=== PATIENT | male | born 1970 | race African-American/Black ===

== ENCOUNTER 2017-03-16 04:12 | Inpatient (IN) | payer BC ==
[2017-03-16 04:40] LABS: #Basophils 0.1 thou/uL (0.0-0.2); #Eosinphils 0.3 thou/uL (0.0-0.7); #Lymphocytes 4.5 thou/uL (1.20-3.40); #Monocytes 1.1 thou/uL (0.11-0.59); #Neutrophils 6.6 thou/uL (1.40-6.50); %Basophils 1.2 % (0.0-1.0); %Eosinophils 2.2 % (0.0-10.0); %Lymphocytes 35.4 % (21.0-51.0); %Monocytes 8.9 % (0.0-10.0); %Neutrophils 52.3 % (42.0-75.0); Hemoglobin 16.8 g/dL (14.0-18.0); Mean Corpuscular HGB CONC 32.3 g/dL (32.0-36.0); Mean Corpuscular Hemoglobin 29.3 pg (27.0-31.0); Mean Corpuscular Volume 90.8 fl (80.0-94.0); Mean Platelet Volume 8.4 fL (7.4-10.4); Platelet Count 187 thou/uL (130-400); RBC Distribution Width 12.7 % (11.5-14.5); Red Blood Cell (RBC) Count 5.74 mill/uL (4.70-6.10); White Blood Cell (WBC) Count 12.7 thou/uL (4.8-10.8)
[2017-03-16 04:51] LABS: PTT 27.9 SEC (22.9-36.1); Prothrombin Time 13.3 SEC (12.0-14.7)
[2017-03-16] MEDS ORDERED: Nitroglycerin 0.4 MG TAB (25 Tab Bottle) ONE ×2 (04:57→06:24)
[2017-03-16 05:02] LABS: ALT (SGPT) 18 U/L (8-55); AST (SGOT) 20 U/L (5-34); Albumin 3.9 g/dL (3.5-5.0); Alkaline Phosphatase 58 U/L (40-150); Anion Gap 11 mmol/L (10-20); BUN (Urea Nitrogen) 10 mg/dL (8.9-20.6); Bilirubin, Total 0.3 mg/dL (0.2-1.2); CK (CPK) 526 U/L (30-200); Calc. Creatinine Clearance 0 mL/min (70-130); Calcium 9.1 mg/dL (7.8-10.44); Carbon Dioxide 26 mmol/L (22-29); Chloride 106 mmol/L (98-107); Estimated GFR-MDRD 84; Globulin 2.2 g/dL (2.4-3.5); Glucose 171 mg/dL (70-105); Potassium 3.8 mmol/L (3.5-5.1); Protein, Total 6.1 g/dL (6.0-8.3); Sodium 139 mmol/L (136-145)
[2017-03-16 05:05] LABS: CKMB 3.8 ng/mL (0-6.6); Troponin I 0.017 ng/mL (< 0.028)
[2017-03-16] MEDS ORDERED: ISOVUE-370 76%-LOCM 1 ML ONE (06:29)
[2017-03-16] MEDS ORDERED: Mag-Al 1200 mg/1200 mg/30 ML UDCUP PO PRN (06:52)
[2017-03-16] MEDS ORDERED: hydrALAZINE 20 MG/ML VIAL SLOW IVP PRN ×2 (06:52→16:35)
[2017-03-16] MEDS ORDERED: Bisacodyl 5 MG TAB PO PRN (06:52)
[2017-03-16] MEDS ORDERED: Lorazepam 1 MG TAB PO PRN (06:52)
[2017-03-16] MEDS ORDERED: Senokot 8.6 MG TAB PO PRN (06:52)
[2017-03-16] MEDS ORDERED: traMADol HCl 50 MG TAB PO PRN (06:52)
[2017-03-16] MEDS ORDERED: Calcium Carbonate 500 MG ChewTAB PO PRN (06:52)
[2017-03-16] MEDS ORDERED: Nitroglycerin 0.4 MG TAB (25 Tab Bottle) SL PRN (06:52)
[2017-03-16] MEDS ORDERED: Acetaminophen 325 MG TAB PO PRN (06:52)
[2017-03-16] MEDS ORDERED: Benzonatate 100 MG CAP PO PRN (06:52)
[2017-03-16] MEDS ORDERED: Loratadine 10 MG TAB PO PRN (06:52)
[2017-03-16] MEDS ORDERED: Ondansetron HCl/PF 4 MG/2 ML Vial IVP PRN (06:52)
[2017-03-16] MEDS ORDERED: Diabetic Tussin 200 MG/10 ML UDCUP PO PRN (06:52)
[2017-03-16] MEDS ORDERED: cloNIDine 0.1 MG TAB PO PRN (06:52)
[2017-03-16] MEDS ORDERED: Nitroglycerin 2% Ointment 1 INCH/1 GM Packet ONE (06:56)
[2017-03-16 07:57] LABS: Troponin I 0.201 ng/mL (< 0.028)
[2017-03-16 08:06] LABS: Amphetamine Not Detected (NotDetected); Barbiturates Screen Not Detected (NotDetected); Benzodiazepine Screen Not Detected (NotDetected); Cocaine Metabolite Screen Not Detected (NotDetected); Medtox Control Line Valid? VALID (VALID); Medtox Reader # READER 1; Methadone Not Detected (NotDetected); Methamphetamine Not Detected (NotDetected); Opiate Screen Not Detected (NotDetected); Oxycodone Screen Not Detected (NotDetected); Phencyclidine (PCP) Not Detected (NotDetected); THC/Cannabinoid Screen Detected (NotDetected); Tricyclic Screen Not Detected (NotDetected)
--- NOTE | 2017-03-16 08:28 | RAD ---
TWO VIEW CHEST: INDICATIONS: Chest pain. FINDINGS: The lungs are clear. The cardiac silhouette is within normal limits in size. No vascular congestion . Mild osseous degenerative change is present. IMPRESSION: No focal consolidation. POS: [facility]
[2017-03-16] MEDS ORDERED: Enoxaparin Sodium 40 MG/0.4 ML SYRINGE ONE (08:59)
[2017-03-16] MEDS ORDERED: Famotidine 20 MG TAB ONE (09:00)
[2017-03-16] MEDS ORDERED: Acetaminophen 325 MG TAB ONE (09:00)
[2017-03-16] MEDS ORDERED: Enoxaparin Sodium 40 MG/0.4 ML SYRINGE SC SCH (09:00)
[2017-03-16] MEDS ORDERED: Ondansetron HCl/PF 4 MG/2 ML Vial ONE (09:13)
[2017-03-16] MEDS ORDERED: Labetalol HCl 100 MG/20 ML VIAL SLOW IVP PRN (09:34)
[2017-03-16 10:35] LABS: Cardiac Risk 3.8 (Less than 4.5)
[2017-03-16 10:53] LABS: Hemoglobin A1c 5.6 % (4.0-6.0)
--- NOTE | 2017-03-16 11:09 | HP ---
DATE OF ADMISSION: 03/16/2017 PRIMARY CARE PHYSICIAN: None. CHIEF COMPLAINT: Chest pain. HISTORY OF PRESENT ILLNESS: Mr. Acosta is a 46-year-old Afro-Macedonian male without any significan t past medical history, as he has never received any medical care, who presented to the emergency [facility] with acute onset of sudden sharp left-sided chest pain. History is mainly obtained by the patient and supplemented by his . Electronic medical records have been reviewed and the case has been di scussed with admitting ER physician, Dr. Ramirez. According to Mr. Acosta, he has been in his usual health up until last night. He had sudden onset of sharp left-sided chest pain after intercourse. He denies taking any Viagra or Cialis. The pain radiated down his left arm and it was associated with shortness of breath, dizziness, and he vomited shortly afterwards. The pain was 10/10 in intensity and he could not recall any relieving factors. The pain persisted until he presented to the emergency room and was given nitroglycerin by mouth. Upon further evaluation in the emergency room, he was found to be having hypertensive emergency with a blood pressure of 206/128. He received medications for blood pressure stabilization in the form of nitro paste. His EKG initially showed some T-wave inversion and depression in leads I and aVL and s erial EKGs were done, which did not show any dynamic progression. He also received aspirin in the em ergency room. He is now being admitted for further evaluation and care. His initial troponin is neg ative, but the repeat troponin is slightly elevated to 0.201. Other than that, the patient denies any recent illnesses. He has never had his blood pressure checke d and does not know if he has undiagnosed hypertension. He has a strong family history of cardiac di sease as well as stroke running in his family. PAST MEDICAL HISTORY: None that the patient knew of. PAST SURGICAL HISTORY: None. SOCIAL HISTORY: He smokes about one-pack of cigarettes per day. Recreational marijuana use. No alc ohol use. ALLERGIES: No known medication allergies. CURRENT MEDICATIONS: None. FAMILY HISTORY: Significant for stroke and heart attack in his mother and heart attack in his grandf ather. One of his brothers also had a heart attack. REVIEW OF SYSTEMS: The following complete review of systems was negative, unless otherwise mentioned in the HPI or below: Constitutional: Weight loss or gain, ability to conduct usual activities. Sk in: Rash, itching. Eyes: Double vision, pain. ENT/Mouth: Nose bleeding, neck stiffness, pain, te nderness. Cardiovascular: Palpitations, dyspnea on exertion, orthopnea. Respiratory: Shortness of breath, wheezing, cough, hemoptysis, fever, or night sweats. Gastrointestinal: Poor appetite, abdo mateo pain, heartburn, nausea, vomiting, constipation, or diarrhea. Genitourinary: Urgency, frequen cy, dysuria, nocturia. Musculoskeletal: Pain, swelling. Neurologic/Psychiatric: Anxiety, depressi on. Allergy/Immunologic: Skin rash, bleeding tendency. It is negative except for those mentioned i n the history and physical. PHYSICAL EXAMINATION: VITAL SIGNS: Upon presentation include blood pressure 206/128, pulse of 64, respirations 16, tempera ture 98.4, saturating 99% on room air. Most recent blood pressure 188/102. GENERAL EXAMINATION: In no acute distress. Awake, alert, and oriented x3. He is sleepy, but easily woken up. In no acute distress. HEENT EXAMINATION: Mucous membrane is moist and pink. No oropharyngeal exudate or erythema. Head i s normocephalic, atraumatic. Pupils are equal, round, and reactive to light and accommodation. NECK: Supple without any lymphadenopathy, JVD, or bruits. Bilateral carotid pulses are palpable equ ally. CHEST: Clear to auscultation without any wheezing, rales, or rhonchi. HEART: Rate and rhythm is regular without any murmurs, rubs, or gallops. ABDOMEN: Obese, soft, nontender, nondistended with positive bowel sounds. EXTREMITIES: No cyanosis, clubbing, or edema. NEUROLOGICAL EXAMINATION: Nonfocal. SKIN: Free of any rashes or bruises. Warm and dry to touch. PSYCHIATRIC: Normal affect. LABORATORY EXAMINATION: Most recent EKG, by my review, shows normal sinus rhythm at 65 beats per min sameer. T waves inverted in leads I and aVL and leads III with ST elevation in leads III. His CBC show s WBCs at 12.7 without any left shift. Serum chemistries unremarkable except for blood sugar of 171, creatine kinase 526, initial cardiac enzymes negative. Repeat troponin 0.201. BNP normal. Urine d rug screen is positive only for cannabinoids. IMPRESSION AND PLAN: 1. Chest pain. The patient's symptomatology is worrisome for unstable angina versus acute myocardia l infarction, likely [id number] myocardial infarction. We will continue to trend serial cardia c enzymes. Likelihood of pulmonary embolism is very low. His physical exam is not consistent with t he same. We will, however, rule out aortic dissection by CT scan of his chest and abdomen. He does have bilateral radial pulses and carotid pulses palpable equally. Other causes of his chest pain can be secondary to hypertensive urgency and emergency. He seems to have undiagnosed longstanding hyper tension. We will provide control of his hypertension by using p.r.n. clonidine as well as p.r.n. lab etalol for now. He will be started on scheduled medications. We will obtain a transthoracic echocar diogram as well as consult Cardiology for further recommendations. If his troponins continue to tren d up, he will be started on tgm-gbdeguyms-bogzej heparin mg/kg dosing. 2. Leukocytosis, unclear etiology. We will monitor. 3. Mild rhabdomyolysis, likely due to chest pain. We will monitor and encouraged oral fluid intake. 4. Tobacco abuse. The patient has been counseled. 5. Morbid obesity. We will check a lipid panel as well. 6. Hyperglycemia. Check hemoglobin A1c. 7. Deep vein thrombosis and gastrointestinal prophylaxis. 8. Add p.r.n. medication order. 9. Code status: FULL CODE. DISPOSITION: Mr. Acosta will be admitted for chest pain, possible unstable angina versus non-ST-e levation MO. ESTIMATED LENGTH OF STAY: At least 2 to 3 midnights. He may or may not need cardiac catheterization. We will defer the decision to Cardiology.
[2017-03-16 11:13] LABS: Troponin I 1.311 ng/mL (< 0.028)
[2017-03-16] MEDS ORDERED: Enoxaparin Sodium 100 MG/ML SYRINGE ONE (11:50)
--- NOTE | 2017-03-16 12:15 | CT ---
CT ANGIO CHEST AND ABDOMEN FOR AORTIC DISSECTION WITH CONTRAST: HISTORY: Chest pain and hypertension. Assess for aortic dissection. TECHNIQUE: Multiple axial tomograms obtained through the chest and abdomen, in the arterial phase, following aor togram protocol, with multiplanar reconstruction and 3D post processing. FINDINGS: The thoracic and abdominal aorta are of normal caliber. There is no evidence of dissection. There i s no significant atherosclerotic change seen. The thoracic vessels, including the celiac artery, the superior mesenteric artery, and the renal artery appear unremarkable. Aortic bifurcation is unremar kable. The lungs appear clear of infiltrate. The liver, spleen, pancreas, and kidneys are unremarkable. Bowel loops appear unremarkable. IMPRESSION: Unremarkable aortogram. POS: [facility]
[2017-03-16] MEDS ORDERED: cloNIDine 0.1 MG TAB ONE (14:45)
[2017-03-16] MEDS ORDERED: Labetalol HCl 100 MG/20 ML VIAL ONE (15:50)
[2017-03-16] MEDS: Famotidine 20 MG TAB PO SCH ×2 (16:46→21:34)
[2017-03-16 16:50] LABS: Troponin I 7.538 ng/mL (< 0.028)
[2017-03-16] MEDS: Amlodipine 10 MG TAB PO SCH ×2 (16:50→17:26)
[2017-03-16] MEDS ORDERED: Nitroglycerin 50 MG/250 ML BOT 250 ML ONE (17:27)
[2017-03-16 18:13] VITALS: BMI 40.4
[2017-03-16] MEDS ORDERED: Communication Order-Pharmacy FS SCH (18:45)
[2017-03-16] MEDS ORDERED: Lisinopril/Hydrochlorothiazide 10 mg/12.5 mg Tablet PO SCH (19:00)
[2017-03-16] MEDS ORDERED: Nitroglycerin 50 MG/250 ML BOT 250 ML IVPB SCH (19:00)
[2017-03-16] MEDS ORDERED: niCARdipine 20MG In NaCl 20 MG/200 ML BAG IVPB SCH (19:00)
[2017-03-16] MEDS ORDERED: FLU VACC QS2017-18 36 mo. & older 0.5 ML SYRINGE IM ONE (21:00)
[2017-03-16] MEDS: Atorvastatin Calcium 40 MG TAB PO SCH (21:34)
[2017-03-16] MEDS: Metoprolol Tartrate 25 MG TAB PO SCH (21:34)
--- NOTE | 2017-03-17 00:47 | CON ---
DATE OF CONSULTATION: 03/16/2017 TIME: 45 minutes. HISTORY OF PRESENT ILLNESS: Patient is a 46-year-old gentleman who presented with acute onset of chest discomfort. The patient has no previous cardiac history. The patient states that he developed the acute onset of midsternal chest discomfort. The patient came to the emergency room with severe chest pain. The chest pain radiated down into his left arm. The patient was noted be markedly hypertensive and admitted for further evaluation. The patient was noted to have chest pain. The patient denies having any present chest discomfort. PAST MEDICAL HISTORY: None PAST SURGICAL HISTORY: None. SOCIAL HISTORY: He smokes 1 pack per day. FAMILY HISTORY: Strong family history of heart disease. ALLERGIES: No known drug allergies. PHYSICAL EXAMINATION: GENERAL: Obese gentleman with a blood pressure 185/80. NECK: Showed no jugular vein distention. LUNGS: Clear to auscultation. HEART: Regular rate and rhythm, normal S1, S2. ABDOMEN: Nondistended. EXTREMITIES: Showed trace edema. LABORATORY DATA: Sodium was 139, potassium 3.8, chloride 106, bicarbonate 26, BUN 10, creatinine is 1.14, glucose 171, troponin was 7.5. White blood cell count is 12.7, hemoglobin 16.8, hematocrit of 52.1, platelets were 187. His EKG revealed normal sinus rhythm with poor R-wave progression, suggestive of previous anteroseptal infarct. IMPRESSION: 1. Non-Q-wave myocardial infarction. 2. Hypertensive crisis. 3. Tobacco abuse. This gentleman presents with a non-Q-wave myocardial infarction and hypertensive crisis. The patient does have several cardiac risk factors including hypertension, tobacco abuse, and a family history of coronary artery disease. I discussed the option of undergoing noninvasive evaluation versus cardiac catheterization to define whether he has severe coronary artery disease. The patient strongly prefers an invasive evaluation. PLAN: Proceed with cardiac catheterization. JENNIFER
[2017-03-17 06:13] LABS: #Basophils 0.1 thou/uL (0.0-0.2); #Lymphocytes 2.5 thou/uL (1.20-3.40); #Monocytes 1.8 thou/uL (0.11-0.59); #Neutrophils 11.8 thou/uL (1.40-6.50); %Basophils 0.4 % (0.0-1.0); %Eosinophils 0.3 % (0.0-10.0); %Lymphocytes 15.5 % (21.0-51.0); %Monocytes 11.3 % (0.0-10.0); %Neutrophils 72.6 % (42.0-75.0); Hemoglobin 15.5 g/dL (14.0-18.0); Mean Corpuscular HGB CONC 32.2 g/dL (32.0-36.0); Mean Corpuscular Volume 90.1 fl (80.0-94.0); Mean Platelet Volume 8.4 fL (7.4-10.4); Platelet Count 180 thou/uL (130-400); RBC Distribution Width 12.4 % (11.5-14.5); Red Blood Cell (RBC) Count 5.34 mill/uL (4.70-6.10); White Blood Cell (WBC) Count 16.3 thou/uL (4.8-10.8)
[2017-03-17 06:33] LABS: Anion Gap 13 mmol/L (10-20); BUN (Urea Nitrogen) 6 mg/dL (8.9-20.6); Calc. Creatinine Clearance 160 mL/min (70-130); Carbon Dioxide 24 mmol/L (22-29); Chloride 105 mmol/L (98-107); Estimated GFR-MDRD Greater than 90; Glucose 130 mg/dL (70-105); Sodium 138 mmol/L (136-145)
[2017-03-17] MEDS: Famotidine 20 MG TAB PO SCH ×2 (07:26→21:49)
[2017-03-17] MEDS: Metoprolol Tartrate 25 MG TAB PO SCH ×2 (07:26→21:49)
[2017-03-17] MEDS ORDERED: Amlodipine 10 MG TAB PO SCH (09:00)
[2017-03-17] MEDS ORDERED: Midazolam HCl 2 mg/2 ml Vial ONE (11:08)
[2017-03-17] MEDS ORDERED: TICAGRELOR 90 MG TABLET ONE (11:23)
[2017-03-17] MEDS ORDERED: Heparin 10,000 UNITS/1 ML VIAL ONE (11:23)
[2017-03-17] MEDS ORDERED: Fentanyl 100 MCG/2 ML VIAL ONE (11:43)
[2017-03-17] MEDS ORDERED: hydrALAZINE 20 MG/ML VIAL ONE (11:52)
[2017-03-17] MEDS ORDERED: Nitroglycerin 0.4 MG TAB (25 Tab Bottle) SL PRN (12:06)
--- NOTE | 2017-03-17 15:31 | PDOC.PN ---
- Subjective Encounter Start Date: 03/17/17 Encounter Start Time: 15:29 Subjective: feels better. no more CP.no SOB -: s/p cardiac cath and RCA stenting w SHARIF - Objective MAR Reviewed: Yes Vital Signs & Weight: Vital Signs (12 hours) Temp Pulse Resp BP Pulse Ox 03/17/17 14:00 99.1 F 03/17/17 13:00 98.9 F 03/17/17 12:06 98.9 F 78 10 L 143/79 H 03/17/17 09:35 95 03/17/17 07:40 98.5 F 78 10 L 94 L 03/17/17 07:00 98.5 F 03/17/17 04:00 98.5 F Most Recent Monitor Data Heart Rate from ECG 78 NIBP 141/74 NIBP BP-Mean 106 Respiration from ECG 9 SpO2 94 I&O: 03/16/17 03/17/17 03/18/17 06:59 06:59 06:59 Intake Total 240 Output Total 775 775 Balance -775 -535 Result Diagrams: 03/17/17 05:30 03/17/17 05:30 Additional Labs: Laboratory Tests 03/16/17 03/16/17 03/16/17 04:28 07:29 07:29 Troponin I 0.017 0.201 H Triglycerides 180 H 03/16/17 03/16/17 10:34 16:17 Troponin I 1.311 H* 7.538 H* Triglycerides Phys Exam - Physical Examination Constitutional: NAD HEENT: PERRLA, moist MMs, sclera anicteric, oral pharynx no lesions Neck: no nodes, no JVD, supple, full ROM Respiratory: no wheezing, no rales, no rhonchi, clear to auscultation bilateral Cardiovascular: RRR, no significant murmur, no rub, gallop Gastrointestinal: soft, non-tender, no distention, positive bowel sounds Musculoskeletal: no edema, pulses present Neurological: non-focal, normal sensation, moves all 4 limbs Psychiatric: normal affect, A&O x 3 Dx/Plan (1) NSTEMI (non-ST elevated myocardial infarction) Code(s): I21.4 - NON-ST ELEVATION (NSTEMI) MYOCARDIAL INFARCTION Status: Acute (2) Hypertensive emergency Code(s): I16.1 - HYPERTENSIVE EMERGENCY Status: Acute (3) HLD (hyperlipidemia) Code(s): E78.5 - HYPERLIPIDEMIA, UNSPECIFIED Status: Acute (4) Obesity (BMI 35.0-39.9 without comorbidity) Code(s): E66.9 - OBESITY, UNSPECIFIED Status: Acute - Plan plan discussed w/ family, DVT proph w/SCDs S/P cardiac stenting.formla report pending.cardiology following. -: HD sable. BP better.on Nicardipine drip. -: cont cardio-prudent meds. statin,BB,MOHAN-I.ECHo w NL EF.Plavix -: Diet and weight loss advised w smoking cessation -: family updated * . Review of Systems - Review of Systems Constitutional: negative: fever, chills, sweats, weakness, malaise, other Respiratory: negative: Cough, Dry, Shortness of Breath, Hemoptysis, SOB with Excertion, Pleuritic Pain, Sputum, Wheezing Cardiovascular: negative: chest pain, palpitations, orthopnea, paroxysmal nocturnal dyspnea, edema, light headedness, other Gastrointestinal: negative: Nausea, Vomiting, Abdominal Pain, Diarrhea, Constipation, Melena, Hematochezia, Other Genitourinary: negative: Dysuria, Frequency, Incontinence, Hematuria, Retention , Other Musculoskeletal: negative: Neck Pain, Shoulder Pain, Arm Pain, Back Pain, Hand Pain, Leg Pain, Foot Pain, Other Neurological: negative: Weakness, Numbness, Incoordination, Change in Speech, Confusion, Seizures, Other - Medications/Allergies Allergies/Adverse Reactions: Allergies Allergy/AdvReac Type Severity Reaction Status Date / Time No Known Allergies Allergy Verified 03/16/17 16:32 Medications: Current Medications Acetaminophen (Tylenol) 650 mg PO Q4H PRN PRN Reason: Headache/Fever or Pain Al Hydroxide/Mg Hydroxide (Maalox) 30 ml PO Q6H PRN PRN Reason: Heartburn or Indigestion Atorvastatin Calcium (Lipitor) 40 mg PO HS [facility] Last Admin: 03/16/17 21:34 Dose: 40 mg Benzonatate (Tessalon) 100 mg PO Q4H PRN PRN Reason: Cough Bisacodyl (Dulcolax) 10 mg PO DAILYPRN PRN PRN Reason: Constipation Calcium Carbonate (Tums) 1,000 mg PO Q4H PRN PRN Reason: Heartburn or Indigestion Clonidine (Catapres) 0.1 mg PO Q4H PRN PRN Reason: Systolic BP > 160 Clopidogrel Bisulfate (Plavix) 75 mg PO DAILY [facility] Famotidine (Pepcid) 20 mg PO BID [facility] Last Admin: 03/17/17 07:26 Dose: 20 mg Guaifenesin (Robitussin Sf) 200 mg PO Q4H PRN PRN Reason: Cough Hydralazine HCl (Apresoline) 10 mg SLOW IVP Q4H PRN PRN Reason: SBP>170 Last Admin: 03/16/17 16:49 Dose: 10 mg Nitroglycerin/Dextrose (Nitroglycerin 50 Mg/250 Ml Bot) 250 mls @ 0 mls/hr IVPB INF [facility]EL[facility]; As Directed PRN Reason: Protocol Last Admin: 03/17/17 06:14 Dose: 250 mls Nicardipine/Sodium Chloride (Cardene) 20 mg in 200 mls @ 0 mls/hr IVPB INF CEL[facility] ; As Directed PRN Reason: Protocol Labetalol HCl (Normodyne) 10 mg SLOW IVP Q4H PRN PRN Reason: SBP Greater Than 180 Loratadine (Claritin) 10 mg PO DAILYPRN PRN PRN Reason: Sinus Symptoms Lorazepam (Ativan) 1 mg PO Q4H PRN PRN Reason: Anxiety/Agitation Metoprolol Tartrate (Lopressor) 25 mg PO BID [facility] Last Admin: 03/17/17 07:26 Dose: 25 mg Nitroglycerin (Nitrostat) 0.4 mg SL Q5MIN PRN PRN Reason: Chest Pain Ondansetron HCl (Zofran) 4 mg IVP Q6H PRN PRN Reason: Nausea/Vomiting Last Admin: 03/16/17 20:37 Dose: 4 mg Senna (Senokot) 2 tab PO HSPRN PRN PRN Reason: Constipation Tramadol HCl (Ultram) 50 mg PO Q4H PRN PRN Reason: Moderate Pain (4-6)
[2017-03-17] MEDS ORDERED: Iopamidol 370 76% 100 ML VIAL ONE (17:21)
[2017-03-17] MEDS ORDERED: Iopamidol 370 76% 50 ML VIAL FS ONE (17:21)
[2017-03-17] MEDS ORDERED: Lisinopril 5 MG TAB PO SCH (21:00)
[2017-03-17] MEDS: Atorvastatin Calcium 40 MG TAB PO SCH (21:50)
[2017-03-18 05:35] LABS: #Basophils 0.1 thou/uL (0.0-0.2); #Eosinphils 0.2 thou/uL (0.0-0.7); #Lymphocytes 2.7 thou/uL (1.20-3.40); #Monocytes 1.6 thou/uL (0.11-0.59); %Basophils 0.6 % (0.0-1.0); %Eosinophils 1.7 % (0.0-10.0); %Lymphocytes 21.3 % (21.0-51.0); %Monocytes 12.6 % (0.0-10.0); %Neutrophils 63.9 % (42.0-75.0); Hemoglobin 15.1 g/dL (14.0-18.0); Mean Corpuscular HGB CONC 31.8 g/dL (32.0-36.0); Mean Corpuscular Hemoglobin 28.6 pg (27.0-31.0); Mean Corpuscular Volume 89.8 fl (80.0-94.0); Mean Platelet Volume 8.9 fL (7.4-10.4); Platelet Count 160 thou/uL (130-400); RBC Distribution Width 12.4 % (11.5-14.5); Red Blood Cell (RBC) Count 5.29 mill/uL (4.70-6.10); White Blood Cell (WBC) Count 12.6 thou/uL (4.8-10.8)
[2017-03-18 06:51] LABS: ALT (SGPT) 33 U/L (8-55); AST (SGOT) 91 U/L (5-34); Albumin 3.5 g/dL (3.5-5.0); Alkaline Phosphatase 50 U/L (40-150); Anion Gap 10 mmol/L (10-20); BUN (Urea Nitrogen) 10 mg/dL (8.9-20.6); Bilirubin, Total 0.6 mg/dL (0.2-1.2); Calc. Creatinine Clearance 156 mL/min (70-130); Calcium 9.2 mg/dL (7.8-10.44); Carbon Dioxide 26 mmol/L (22-29); Chloride 105 mmol/L (98-107); Estimated GFR-MDRD Greater than 90; Globulin 2.4 g/dL (2.4-3.5); Glucose 96 mg/dL (70-105); Protein, Total 5.9 g/dL (6.0-8.3); Sodium 137 mmol/L (136-145)
[2017-03-18] MEDS: Clopidogrel Bisulfate 75 MG TAB PO SCH ×2 (08:41→08:42)
[2017-03-18] MEDS: Aspirin 81 mg Enteric Coated Tablet PO SCH (08:42)
[2017-03-18] MEDS: Famotidine 20 MG TAB PO SCH ×2 (08:42→20:38)
[2017-03-18] MEDS: Lisinopril 20 MG TAB PO SCH (08:45)
--- NOTE | 2017-03-18 18:34 | PDOC.PN ---
- Subjective Encounter Start Date: 03/18/17 Encounter Start Time: 18:20 Subjective: f/u NSTEMI with PTCA and SHARIF to RCA. No CP or SOB. Feels fine overall. -: Tolerating heart healthy diet. - Objective MAR Reviewed: Yes Vital Signs & Weight: Vital Signs (12 hours) Temp Pulse Resp BP BP Pulse Ox 03/18/17 15:10 99.2 F 88 16 104/59 L 98 03/18/17 11:30 99 F 73 16 130/72 97 03/18/17 08:45 138/78 03/18/17 08:00 98.9 F 84 16 96 03/18/17 07:15 98.9 F 84 16 138/78 96 Weight Weight 274 lb Most Recent Monitor Data Heart Rate from ECG 85 NIBP 131/82 NIBP BP-Mean 100 Respiration from ECG 18 SpO2 95 I&O: 03/17/17 03/18/17 03/19/17 06:59 06:59 06:59 Intake Total 817 250 Output Total 773 1125 Balance -775 -1401 250 Result Diagrams: 03/18/17 04:16 03/18/17 04:16 Radiology Reviewed by me: Yes (2D Echo - EF55%, no wall motion abnormality) EKG Reviewed by me: Yes (Tele - SR in 70's) Phys Exam - Physical Examination Constitutional: NAD HEENT: PERRLA, oral pharynx no lesions Neck: no JVD, supple Respiratory: no wheezing, clear to auscultation bilateral Cardiovascular: RRR Gastrointestinal: soft, non-tender, no distention, positive bowel sounds Musculoskeletal: no edema, pulses present Neurological: normal sensation, moves all 4 limbs Psychiatric: A&O x 3 Skin: normal turgor, cap refill <2 seconds Dx/Plan (1) NSTEMI (non-ST elevated myocardial infarction) Code(s): I21.4 - NON-ST ELEVATION (NSTEMI) MYOCARDIAL INFARCTION Status: Acute Comment: s/p PTCA with RCA SHARIF, stable (2) Status post percutaneous transluminal coronary angioplasty Code(s): Z98.61 - CORONARY ANGIOPLASTY STATUS Status: Acute Comment: Dual antiplatelet therapy (3) HLD (hyperlipidemia) Code(s): E78.5 - HYPERLIPIDEMIA, UNSPECIFIED Status: Chronic Comment: Continue Lipitor 40mg HS (4) Hypertensive emergency Code(s): I16.1 - HYPERTENSIVE EMERGENCY Status: Acute Comment: Resolved (5) Obesity (BMI 35.0-39.9 without comorbidity) Code(s): E66.9 - OBESITY, UNSPECIFIED Status: Chronic (6) Tobacco abuse Code(s): Z72.0 - TOBACCO USE Status: Chronic Comment: Smoking cessation resources - Plan director of social media marketing, out of bed/ambulate, DVT proph w/SCDs Stable overall -: Continue ASA and Plavix -: Continue Metoprolol XL 50mg daily -: Smoking cessation -: Plan for d/c home in 24h * .
[2017-03-18] MEDS: Atorvastatin Calcium 40 MG TAB PO SCH (20:38)
[2017-03-19] MEDS: Clopidogrel Bisulfate 75 MG TAB PO SCH ×2 (07:43→08:26)
[2017-03-19 07:55] VITALS: BP 118/73; TEMP 98.8
[2017-03-19] MEDS: Famotidine 20 MG TAB PO SCH (08:26)
[2017-03-19] MEDS: Lisinopril 20 MG TAB PO SCH (08:26)
[2017-03-19] MEDS: Aspirin 81 mg Enteric Coated Tablet PO SCH (08:26)
--- NOTE | 2017-03-19 12:00 | DIS ---
DISCHARGE DIAGNOSES: 1. Non-ST elevation myocardial infarction. 2. Hypertensive emergency, resolved. 3. Status post percutaneous transluminal coronary angioplasty with drug-eluting stent placement to t he right coronary artery. 4. Hyperlipidemia. 5. Tobacco abuse. 6. Obesity. CONSULTATIONS: Dr. Vieira with Cardiology Service. PERTINENT LABORATORY AND X-RAY FINDINGS: Basic metabolic profile within normal limits. Hemoglobin A 1c 5.6. LFTs showed AST of 91, ALT of 33, troponin I ranged between 0.017-7.54, total cholesterol 16 3, triglycerides 180, HDL 43, LDL 84. CBC showed a white blood cell count ranging between 12.6-16.3, hemoglobin 15, hematocrit 48. Urine drug screen dated 03/16/2017 positive for cannabinoids. Portab le chest x-ray dated 03/16/2017 showed no acute cardiopulmonary process. Left heart catheterization dated 03/17/2017 showed occlusion of the right coronary artery. CT of the chest and abdomen with aor tic dissection protocol dated 03/16/2016 negative. HOSPITAL COURSE: The patient was initially admitted to the telemetry unit after presenting with ches t pain with associated elevated troponin I as stated previously. The patient was diagnosed with a no n-ST elevation myocardial infarction, evaluated by the Cardiology Service with concomitant hypertensi ve emergency with initial blood pressure of 206/128. The patient also was noted with EKG changes lucio wing T-wave inversion in leads 1 and aVL. The patient underwent selective cardiac angiogram showing occlusion of the right coronary artery. The patient underwent PTCA with percutaneous coronary interv ention and placement of a drug-eluting stent. The patient was continued on general medical managemen t with the addition of dual antiplatelet therapy with aspirin and Plavix with recommendations for 1 y ear of therapy post-discharge. The patient was initiated on Toprol-XL, lisinopril and Lipitor per pr otocol. The patient was given dietary counseling and monitored post-catheterization without evidence of acute arrhythmia or dysrhythmia. The patient overall remained clinically stable and ready [facility] on 03/19/2017. DISCHARGE MEDICATIONS: 1. Enteric coated aspirin 81 mg 1 tab p.o. daily. 2. Plavix 75 mg 1 tab p.o. daily. 3. Lipitor 40 mg p.o. at bedtime. 4. Lisinopril 20 mg 1 tab p.o. daily. 5. Toprol-XL 50 mg 1 tablet p.o. daily. FOLLOWUP: The patient will follow up with [facility] after discharge within 7 d ays. The patient will follow up with Dr. Usman Vieira with [facility] Cardiology Service with 7- 10 days after discharge. CONDITION ON DISCHARGE: Stable. ACTIVITY: Ad avis. DIET: Heart healthy. CODE STATUS: Full. DISPOSITION: Home on 03/19/2017.
--- NOTE | 2017-04-11 16:30 | EKG ---
Test Reason : POST STENT X1 Blood Pressure : / mmHG Vent. Rate : 084 BPM Atrial Rate : 084 BPM P-R Int : 174 ms QRS Dur : 082 ms QT Int : 382 ms P-R-T Axes : 064 027 -32 degrees QTc Int : 451 ms Sinus rhythm with Premature atrial complexes Inferior infarct , age undetermined Abnormal ECG When compared with ECG of 16-MAR-2017 06:54, (Unconfirmed) Premature atrial complexes are now Present Inferior infarct is now Present T wave inversion now evident in Inferior leads Confirmed by DR. Ever VAZQUEZ ([id number]) on 04/11/2017 4:30:27 PM Referred By: HALLE Confirmed By:DR. Ever VAZQUEZ
--- NOTE | 2017-04-11 16:33 | EKG ---
Test Reason : Blood Pressure : / mmHG Vent. Rate : 087 BPM Atrial Rate : 087 BPM P-R Int : 170 ms QRS Dur : 086 ms QT Int : 384 ms P-R-T Axes : 064 020 -38 degrees QTc Int : 462 ms Normal sinus rhythm Inferior infarct (cited on or before 17-MAR-2017) Abnormal ECG When compared with ECG of 17-MAR-2017 13:19, (Unconfirmed) Premature atrial complexes are no longer Present Confirmed by DR. Ever VAZQUEZ ([id number]) on 04/11/2017 4:33:27 PM Referred By: HALLE Confirmed By:DR. Ever VAZQUEZ
--- NOTE | 2017-04-19 21:57 | EKG ---
Test Reason : Blood Pressure : / mmHG Vent. Rate : 065 BPM Atrial Rate : 065 BPM P-R Int : 190 ms QRS Dur : 096 ms QT Int : 406 ms P-R-T Axes : 039 034 083 degrees QTc Int : 422 ms Normal sinus rhythm Cannot rule out Anterior infarct , age undetermined Abnormal ECG Confirmed by DIOMEDES REEDER M.D. ([id number]), design editor ANN ARNOLD ([id number] on 04/19/2017 9:57:01 PM Referred By: Confirmed By:DIOMEDES REEDER M.D.
== END 2017-03-19 09:45 | disposition home or self-care (01) | DRG 247 ==
LOC: ERS 04:12 → ERHOLD 07:36 → 2NO 16:08 → CCU 17:40 → 2SE 03-18 01:28
PROVIDERS: ADMIT Internal Medicine; ATTEND Internal Medicine
PROC: 4A023N7 Measurement of Cardiac Sampling and Pressure, Left Heart, Percutaneous Approach (ICD-10-PCS; principal; 2017-03-17)
PROC: 027034Z Dilation of Coronary Artery, One Artery with Drug-eluting Intraluminal Device, Percutaneous Approach (ICD-10-PCS; 2017-03-17)
PROC: B2111ZZ Fluoroscopy of Multiple Coronary Arteries using Low Osmolar Contrast (ICD-10-PCS; 2017-03-17)
PROC: B2151ZZ Fluoroscopy of Left Heart using Low Osmolar Contrast (ICD-10-PCS; 2017-03-17)
DX: I21.4 Non-ST elevation (NSTEMI) myocardial infarction (principal); M62.82 Rhabdomyolysis; E66.01 Morbid (severe) obesity due to excess calories; I16.1 Hypertensive emergency; Z68.41 Body mass index [BMI] 40.0-44.9, adult; F17.210 Nicotine dependence, cigarettes, uncomplicated; Z82.49 Family history of ischemic heart disease and other diseases of the circulatory system; F12.10 Cannabis abuse, uncomplicated; I10 Essential (primary) hypertension; E78.5 Hyperlipidemia, unspecified; I25.119 Atherosclerotic heart disease of native coronary artery with unspecified angina pectoris
CPT/HCPCS: 36415; 71046; 71275; 80048; 80053; 80061; 80306; 82553; 83036; 83880; 84484; 85025; 85347; 85610; 85730; 92928; 93005; 93010; 93306; 93458; 93798; 96361; 96372; 96374; 96375; 99152; 99153; C1725; C1760; C1769; C1874; C1887; C9600; J0360; J1644; J1650; J2250; J2405; J3010